=== PATIENT | female | born 1960 | race African-American/Black ===

== ENCOUNTER 2017-03-02 15:27 | Emergency (ER) | payer BC ==
[~2017-03-02] VITALS: Ht 167.6 cm; Wt 73.0 kg
--- NOTE | 2017-03-02 15:38 | Emergency Room Report ---
History of Present Illness General Chief Complaint: Dyspnea/Respdistress Source: Patient, EMS Present Illness HPI Patient is a 56 or female presented after increased shortness of breath. Patient stated that she been short of breath for approximately last 10 hours. Patient had recently been discharged from the hospital after similar episode. Patient hospitalized on . Patient had previously had allergic reaction to hydralazine which required ICU management. The patient was noted to have no shortness of breath by EMS and was reportedly had a unremarkable EKG. Patient denied any fever. She reported compliant with her medications. Allergies: Coded Allergies: HYDRALAZINE (Verified Allergy, Unknown, 03/02/17) Patient History Past Medical History: see triage record, HTN Reviewed Nursing Documentation: PMH: Agreed, PSxH: Agreed Nursing Documentation-PMH Past Medical History: No History, Except For Hx Hypertension: Yes Review of Systems All Other Systems: negative except mentioned in HPI Physical Exam Vital Signs Date Time Temp Pulse Resp B/P Pulse Ox O2 Delivery O2 Flow Rate FiO2 03/02/17 15:20 98.1 82 18 137/72 99 Room Air Sp02 EP Interpretation: reviewed, normal General Appearance: normal inspection, well appearing, no apparent distress, alert, GCS 15 Head: atraumatic ENT: normal ENT inspection, hearing grossly normal, normal voice Neck: normal inspection, full range of motion, supple, no bony tend Respiratory: normal inspection, lungs clear, normal breath sounds, no respiratory distress, no retraction, no wheezing Cardiovascular #1: regular rate, rhythm, no edema Gastrointestinal: normal inspection, normal bowel sounds, non tender, soft, no guarding, no hernia Genitourinary: no CVA tenderness Musculoskeletal: normal inspection, back normal, normal range of motion Neurologic: normal inspection, alert, oriented x3, responsive, bag hanger III-XII nml as tested, speech normal Psychiatric: normal inspection, judgement/insight normal, mood/affect normal Skin: normal inspection, normal color, no rash Medical Decision Making Diagnostic Impression: Primary Impression: Anxiety Ruled Out: Pulmonary embolism ER Course Patient presented for shortness of breath. Differential included but was not limited to anemia, pneumonia, pneumothorax, myocardial infarction, pericardial effusion, congestive heart failure, acidosis. Because of complexity of patient' s case laboratory testing and imaging studies were ordered.Patient was noted to have unremarkable laboratory testing. EKG interpreted by me showed normal sinus rhythm with nonspecific ST changes. Patient noted have recent stress test which was reportedly negative. CT imaging and laboratory tests were reviewed from prior hospitalization which indicate no evidence of the prior testing for possible PE. CT of the chest read by radiology showed no evidence of pulmonary embolism. The patient was advised to followup with her prior cardiology appointment. Labs Test 03/02/17 16:00 White Blood Count 7.0 K/UL (4.8-10.8) Red Blood Count 5.22 M/UL (4.20-5.40) Hemoglobin 14.7 G/DL (12.0-16.0) Hematocrit 41.4 % (37.0-47.0) Mean Corpuscular Volume 79 FL (80-99) Mean Corpuscular Hemoglobin 28.2 PG (27.0-31.0) Mean Corpuscular Hemoglobin Concent 35.5 G/DL (32.0-36.0) Red Cell Distribution Width 16.1 % (11.6-14.8) Platelet Count 312 K/UL (150-450) Mean Platelet Volume 9.2 FL (6.5-10.1) Neutrophils (%) (Auto) 57.1 % (45.0-75.0) Lymphocytes (%) (Auto) 33.9 % (20.0-45.0) Monocytes (%) (Auto) 5.5 % (1.0-10.0) Eosinophils (%) (Auto) 1.8 % (0.0-3.0) Basophils (%) (Auto) 1.7 % (0.0-2.0) D-Dimer 223 ng/mL (<500) Sodium Level 141 mEQ/L (135-145) Potassium Level 3.5 mEQ/L (3.4-4.9) Chloride Level 103 mEQ/L (98-107) Carbon Dioxide Level 23 mEQ/L (20-30) Anion Gap 15 (5-15) Blood Urea Nitrogen 6 mg/dL (7-23) Creatinine 0.7 mg/dL (0.5-0.9) Estimat Glomerular Filtration Rate > 60 mL/min (>60) Glucose Level 113 mg/dL (74-106) Calcium Level 11.4 mg/dL (8.6-10.2) Total Bilirubin 0.6 mg/dL (0.0-1.2) Aspartate Amino Transf (AST/SGOT) 20 U/L (5-40) Alanine Aminotransferase (ALT/SGPT) 25 U/L (3-33) Alkaline Phosphatase 70 U/L (35-104) Total Creatine Kinase 56 U/L (26-140) Creatine Kinase MB < 1.5 ng/mL (< 3.8) Creatine Kinase MB Relative Index Troponin I < 0.30 ng/mL (<=0.30) Pro-B-Type Natriuretic Peptide 55 pg/mL (0-125) Total Protein 7.7 g/dL (6.6-8.7) Albumin 4.7 g/dL (3.5-5.2) Globulin 3.0 g/dL Albumin/Globulin Ratio 1.5 (1.0-2.7) Last Vital Signs Date Time Temp Pulse Resp B/P Pulse Ox O2 Delivery O2 Flow Rate FiO2 03/02/17 15:20 98.1 82 18 137/72 99 Room Air Status: improved Disposition: HOME, SELF-CARE Condition: Stable Avery Vega Mar 02, 2017 15:38
[2017-03-02] MEDS ORDERED: Aspirin Baby 81mg ORAL ONE (15:45)
[2017-03-02 16:01] VITALS: BP 130/72
[2017-03-02 16:18] LABS: BASOPHILS % (AUTO) 1.7 % (0.0-2.0); EOSINOPHILS % (AUTO) 1.8 % (0.0-3.0); LYMPHOCYTES % (AUTO) 33.9 % (20.0-45.0); MEAN CORPUSCULAR HEMOGLOBIN 28.2 PG (27.0-31.0); MEAN CORPUSCULAR HGB CONC 35.5 G/DL (32.0-36.0); MEAN CORPUSCULAR VOLUME 79 FL (80-99); MEAN PLATELET VOLUME 9.2 FL (6.5-10.1); MONOCYTES % (AUTO) 5.5 % (1.0-10.0); NEUTROPHILS % (AUTO) 57.1 % (45.0-75.0); PLATELET COUNT 312 K/UL (150-450); RED BLOOD COUNT 5.22 M/UL (4.20-5.40); RED CELL DISTRIBUTION WIDTH 16.1 % (11.6-14.8)
[2017-03-02 16:34] LABS: ALANINE AMINOTRANSFERASE 25 U/L (3-33); ALBUMIN/GLOBULIN RATIO 1.5 (1.0-2.7); ANION GAP 15 (5-15); ASPARTATE AMINO TRANSFERASE 20 U/L (5-40); CALCIUM 11.4 mg/dL (8.6-10.2); CARBON DIOXIDE 23 mEQ/L (20-30); CHLORIDE 103 mEQ/L (98-107); CREATININE 0.7 mg/dL (0.5-0.9); GLOMERULAR FILTRATION RATE > 60 mL/min (>60); HEMOLYSIS 3; POTASSIUM 3.5 mEQ/L (3.4-4.9); SODIUM 141 mEQ/L (135-145); TOTAL PROTEIN 7.7 g/dL (6.6-8.7)
[2017-03-02 16:35] LABS: TROPONIN I < 0.30 ng/mL (<=0.30)
[2017-03-02 16:44] LABS: CKMB < 1.5 ng/mL (< 3.8)
[2017-03-02 17:26] VITALS: BP 151/75
[2017-03-02 18:57] VITALS: BP 154/81
[2017-03-02 20:12] VITALS: BP 172/84
[2017-03-02 20:13] VITALS: BP 154/81
--- NOTE | 2017-03-03 11:54 | Diagnostic Imaging Report ---
Indication: Dyspnea Comparison: None A single view chest radiograph was obtained. Findings: Heart is prominent in size. Pulmonary vascularity is appropriate. The diaphragmatic contour is smooth and costophrenic angles are sharp. No pleural effusions are identified. The bones are slightly osteopenic. Impression: No acute findings Cardiomegaly
--- NOTE | 2017-03-03 15:17 | Diagnostic Imaging Report ---
Indication: Chest pain Technique: Continuous helical transaxial imaging of the chest was obtained from the thoracic inlet to the upper abdomen during rapid intravenous contrast administration. Arterial phase of enhancement obtained. Coronal 2-D reformats were also obtained and maximum intensity projection images in multiple planes. Study obtained in a Siemens sensation [address] Total Dose length Product (DLP): [address] Dose Index Volume (CTDIvol): 12.6x3, 29 mGy Comparison: None Findings: The pulmonary artery is well opacified and shows no filling defects. There is a 4 mm noncalcified nodule demonstrated within the right lower lobe (image 54, series 8). The lungs are otherwise clear. There is no adenopathy, pleural or pericardial effusions are identified. The aortic dissection or aneurysm identified within the chest. Visualized part of the upper abdomen 8 mm nonobstructive stone right kidney. Gallbladder is contracted. Is heterogeneous with suggestion of multiple small nodules. Impression: No evidence of pulmonary embolus or aortic dissection or aneurysm. 5 mm right lower lobe lung nodule. Suggest followup at 6 months per Fleischner Society criteria. Suggestion of multiple small thyroid nodules. Ultrasound evaluation would be appropriate. 8 mm nonobstructive stone in the right kidney. [facility] has communicated the preliminary results to the Emergency Department. Their findings are largely concordant with this report. The CT scanner at [facility] is accredited by the [employer] and the scans are performed using dose optimization techniques as appropriate to a performed exam including Automatic Exposure control.
--- NOTE | 2017-03-03 16:51 | Cardiology Report ---
APPROVED REPORT EKG Measurement Heart [id number] EEt000 Normal sinus rhythm Left axis deviation Minimal voltage criteria for LVH, may be normal variant Inferior infarct, age undetermined Abnormal ECG
== END 2017-03-02 20:13 | disposition home or self-care (01) ==
LOC: EDBD 15:27 → EMR 16:27
DX: F41.9 Anxiety disorder, unspecified (principal); I10 Essential (primary) hypertension; Z88.8 Allergy status to other drugs, medicaments and biological substances
CPT/HCPCS: 36415; 71010; 71275; 80053; 82550; 82553; 83880; 84484; 85025; 85379; 93005; 99284; Q9967